=== PATIENT | female | born 2000 | race Asian ===

== ENCOUNTER 2023-02-14 19:26 | Emergency (ER) | payer OTHER ==
[2023-02-14 19:49] VITALS: BP 148/100; PULSE 64; RESP 18; TEMP 97.8; BMI 32.0
== END 2023-02-14 22:00 | disposition home or self-care (01) ==
LOC: JER 19:26
DX: S06.0X0A Concussion without loss of consciousness, initial encounter (principal); W22.8XXA Striking against or struck by other objects, initial encounter; Y93.23 Activity, snow (alpine) (downhill) skiing, snowboarding, sledding, tobogganing and snow tubing
CPT/HCPCS: 70450-TC; 72125-TC; 99284-25